=== PATIENT | male | born 1980 | race Caucasian/White ===

== ENCOUNTER 2020-05-10 13:53 | Inpatient (IN) | payer OTHER ==
[~2020-05-10] VITALS: Ht 180.3 cm; Wt 129.0 kg
[2020-06-29] VITALS (11 sets, daily range): BP systolic 108–170; BP diastolic 71–94; PULSE 49–73; TEMP 97.3–98.2
[2020-06-29] MEDS ORDERED: IRON TABLETS325 MG PO (04:11)
[2020-06-29] MEDS ORDERED: VITAMIN C500 MG PO (04:11)
[2020-06-29] MEDS ORDERED: FOLIC ACID 40400 MCG PO (04:12)
[2020-06-29] MEDS ORDERED: ASPIRIN E.C. 8181 MG PO (04:13)
[2020-06-29] MEDS ORDERED: PRIL40 PO (04:13)
[2020-06-29] MEDS ORDERED: ZYRTEC 10MG10 MG PO (04:14)
[2020-06-30 04:40] VITALS: BP 142/72; PULSE 81; TEMP 99
[2020-06-30 07:30] LABS: HEMOGLOBIN 13.6 g/dl (13.5-18.0)
[2020-06-30 08:18] VITALS: BP 138/85; PULSE 68; TEMP 97.8
[2020-06-30 13:14] VITALS: BP 148/75; PULSE 59; TEMP 97.7
[2020-06-30 16:03] VITALS: BP 148/80; PULSE 79; TEMP 98
[2020-06-30] MEDS ORDERED: ASPI325T6 PO (16:58)
[2020-06-30] MEDS ORDERED: NORCO 325 MG-7.1 TAB PO (16:59)
[2020-06-30] MEDS ORDERED: SENOKOT S 50 MG1 TAB PO (16:59)
[2020-06-30] MEDS ORDERED: ROXICODONE 55 MG/TAB PO (16:59)
== END 2020-06-30 17:45 | disposition home or self-care (01) | DRG 470 ==
LOC: JCC 06-29 05:24
PROVIDERS: ADMIT Orthopaedic Surgery
PROC: 0SRD0J9 Replacement of Left Knee Joint with Synthetic Substitute, Cemented, Open Approach (ICD-10-PCS; principal; 2020-06-29 07:30)
DX: M17.12 Unilateral primary osteoarthritis, left knee (principal)
CPT/HCPCS: A9284; C1776; J0690; J1885; J2250; J2405; J2704; J3010; J7030; J7120

== ENCOUNTER 2020-09-27 13:31 | Inpatient (IN) | payer OTHER ==
[~2020-09-27] VITALS: Ht 180.3 cm; Wt 135.1 kg
[~2020-09-27 13:31] MED LIST: ASPI325T6 PO; ASPIRIN E.C. 8181 MG PO; FOLIC ACID 40400 MCG PO; IRON TABLETS325 MG PO; NORCO 325 MG-7.1 TAB PO; PRIL40 PO; ROXICODONE 55 MG/TAB PO; SENOKOT S 50 MG1 TAB PO; VITAMIN C500 MG PO; ZYRTEC 10MG10 MG PO
[2020-11-10] VITALS (13 sets, daily range): BP systolic 108–147; BP diastolic 53–83; PULSE 42–85; TEMP 97.3–98.5
[2020-11-10] MEDS ORDERED: PRINIVIL10 MG PO (06:30)
[2020-11-10] MEDS ORDERED: MULTIPLE VITAMI1 TA5 PO (06:31)
[2020-11-10] MEDS ORDERED: MELATONIN5 M1 PO (06:32)
--- NOTE | 2020-11-10 06:44 | NUR ---
TO RM 8 PER STEADY GAIT. ALERT ORIENTED X3, VERBALIZED UNDERSTANDING AND SIGNED CONSENT.
--- NOTE | 2020-11-10 10:30 | NUR ---
PATIENT ADMITED INTO ROOM 326 POST OP RTK. RLE DRESSING IS CD&I WITH ACEWRAP. RLE ELEVATE WITH ICE PACK INPLACE. TEDS TO LLE. SCD'S TO BLE. POSITIVE PEDAL PULSES TO BLE. NO C/O PAIN OR NAUSEA. LIQUIDS AT BEDSIDE. IV FLUIDS INFUSING VIA PUMP INTO LEFT WRIST IV. HEAD TO TOE ASSESSMENT WNL. ORIENTED TO ROOM. CALL LIGHT IN REACH.
--- NOTE | 2020-11-10 11:25 | NUR ---
PATIENT C/O PAIN IN RLE RATED AT 8/10. GAVE PRN ROXICODONE, TWO TABS AND SCHEUDLED TYLENOL. RLE ELEVATED WITH ICE PACK INPLACE.
--- NOTE | 2020-11-10 12:52 | NUR ---
PATIENT STILL C/O PAIN IN RLE AFTER ROXICODONE & TYLENOL & ELEVATION WITH ICE. GAVE PRN ULTRAM. WILL MONITOR.
--- NOTE | 2020-11-10 13:15 | NUR ---
PATIENT IS BACK IN ROOM FROM DIALYSIS CATH PLACEMENT. VSS. DENIES PAIN. RIGHT CHEST DIALYSIS CATH DRESSING IS CD&I WITH GAUZE AND PAPER TAPE. PATIENT TOLERATED PROCEDURE WELL.
--- NOTE | 2020-11-10 14:10 | NUR ---
PATIENT STILL HAVING LOTS OF PAIN IN RLE. REPOSITIONED RLE INTO HIGH "TIME OUT" POSITION WITH ICE PACK. MESSGED ORTHO, WAITING FOR ORDERS.
--- NOTE | 2020-11-10 21:40 | NUR ---
Pt. sitting up in bed at this time. Pt. is A&OX3, assessment complete. IV to lt. wrist patent, IV fluids infusing per orders. Dressing to rt. knee CDI. Pt. reported pain at a 6 on pain scale, gave pain meds per orders. Pt. denies further needs, call light within reach.
[2020-11-11 03:51] VITALS: BP 132/71; PULSE 73; TEMP 99.3
[2020-11-11 06:52] LABS: HEMATOCRIT 41.4 % (42.0-52.0); HEMOGLOBIN 13.6 g/dl (13.5-18.0)
[2020-11-11 08:14] VITALS: BP 134/80; PULSE 77; TEMP 98.9
--- NOTE | 2020-11-11 08:54 | NUR ---
PT EATING BREAKFAST, A/O X3 LUNGS CLEAR, BOWEL SOUNDS PRESENT. PAIN CONTROLLED WITH PO MEDS THIS AM. DRESSING TO KNEE CDI WITH OCCLUSIVE BULKY DRESSING INPLACE.
--- NOTE | 2020-11-11 09:51 | NUR ---
Border Inspector met with patient to discuss discharge plan. Patient lives in [place] with his , Genna (ph#[phone]) and their two children, ages ten and fourteen. 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 Patient sees [facility] for primary care and obtains medications from [facility] with no difficulties. Patient has a walker for recovery but normally does not use any DME. Patient is independent with ADLS. Patient does not have Advance Directives and was not interested in designating DPOA-HC at this time. Patient plans to return home upon discharge with his , March providing him transportation. No needs identified at this time.
--- NOTE | 2020-11-11 11:21 | NUR ---
Dressing change complete. Aquacel placed over Right knee. Pt tolerated well.
[2020-11-11 11:23] VITALS: BP 140/90; PULSE 72; TEMP 98.3
[2020-11-11] MEDS ORDERED: ASPI325T6 PO (11:36)
[2020-11-11] MEDS ORDERED: NORCO 325 MG-7.1 TAB PO (11:37)
[2020-11-11] MEDS ORDERED: ROXICODONE 55 MG/TAB PO (11:38)
[2020-11-11] MEDS ORDERED: SENOKOT S 50 MG1 TAB PO (11:39)
--- NOTE | 2020-11-11 17:10 | NUR ---
discharge instructions reviewed with pt. PT TAKEN TO ED ENTRANCE. DISCHARGE IN POV WITH FAMILY.
== END 2020-11-11 17:11 | disposition home or self-care (01) | DRG 470 ==
LOC: INPTSU 11-10 05:39 → JCC 11-10 07:30 → SURG 11-10 10:30
PROVIDERS: ADMIT Orthopaedic Surgery
PROC: 0SRC0J9 Replacement of Right Knee Joint with Synthetic Substitute, Cemented, Open Approach (ICD-10-PCS; principal; 2020-11-10 07:30)
DX: M17.11 Unilateral primary osteoarthritis, right knee (principal); Z68.41 Body mass index [BMI] 40.0-44.9, adult; E66.9 Obesity, unspecified; Z88.0 Allergy status to penicillin
CPT/HCPCS: A9284; C1776; J0690; J2250; J2270; J2704; J7030; J7120